=== PATIENT | female | born 1990 | race African-American/Black ===

== ENCOUNTER 2017-04-07 18:19 | Emergency (ER) | payer OTHER ==
[~2017-04-07] VITALS: Ht 162.6 cm; Wt 111.1 kg
[~2017-04-07 18:19] MED LIST: CIPR250T30 PO; PROAIR HFA8.5 GM IH
--- NOTE | 2017-04-07 19:35 | PHYS DOC ---
Past Medical History Past Medical History: Hypertension Additional Past Medical Histor: Gout, Pinched nerve in back. Past Surgical History: No Surgical History Alcohol Use: Occasionally Drug Use: Marijuana Adult General Chief Complaint Chief Complaint: LOWER EXTREMITY SWELLING HPI HPI Patient is a 26 year old female who presents with left lower leg pain since waking up from a nap at 2:30 this afternoon denies trauma but complains of pain with bearing weight to the anterior tibial area and thinks her leg slightly swollen. She was able to walk from her car to the emergency room waiting room. No prior history of any DVTs in the left leg; denies any chest pain or shortness of breath. Pain is dull left lower leg no radiation of the pain no back pain. Review of Systems Review of Systems Constitutional: Denies fever or chills [] Eyes: Denies change in visual acuity, redness, or eye pain [] HENT: Denies nasal congestion or sore throat [] Respiratory: Denies cough or shortness of breath [] Cardiovascular: No additional information not addressed in HPI [] GI: Denies abdominal pain, nausea, vomiting, bloody stools or diarrhea [] : Denies dysuria or hematuria [] Musculoskeletal: Denies back pain or joint pain [] Integument: Denies rash or skin lesions [] Neurologic: Denies headache, focal weakness or sensory changes [] Endocrine: Denies polyuria or polydipsia [] Allergies Allergies Allergies Coded Allergies Type Severity Reaction Last Updated Verified ibuprofen Allergy Intermediate 07/06/14 Yes iodine Allergy Intermediate 07/06/14 Yes blueberry Allergy Unknown 07/06/14 Yes raspberry Allergy Unknown 07/06/14 Yes Physical Exam Physical Exam Constitutional: Well developed, well nourished, no acute distress, non-toxic appearance. [] HENT: Normocephalic, atraumatic, bilateral external ears normal, oropharynx moist, no oral exudates, nose normal. [] Eyes: PERRLA, EOMI, conjunctiva normal, no discharge. [] Neck: Normal range of motion, no tenderness, supple, no stridor. [] Cardiovascular:Heart rate regular rhythm, no murmur [] Lungs & Thorax: Bilateral breath sounds clear to auscultation [] Abdomen: Bowel sounds normal, soft, no tenderness, no masses, no pulsatile masses. [] Skin: Warm, dry, no erythema, no rash. [] Back: No tenderness, no CVA tenderness. [] Extremities: No tenderness, no cyanosis, no clubbing, ROM intact, no edema. [] Neurologic: Alert and oriented X 3, normal motor function, normal sensory function, no focal deficits noted. [] Psychologic: Affect normal, judgement normal, mood normal. [] Current Patient Data Vital Signs Vital Signs Date Time Temp Pulse Resp B/P (MAP) Pulse Ox O2 Delivery O2 Flow Rate FiO2 04/07/17 19:00 97.9 116 22 191/106 (134) 97 Room Air 97.9 Lab Values Laboratory Tests Test 04/07/17 18:01 POC Urine HCG, Qualitative Hcg negative (Negative) EKG EKG [] Radiology/Procedures Radiology/Procedures Venous ultrasound left lower leg: No DVT per radiology report X-ray left tib-fib: [] Negative for fracture or lytic lesion my interpretation Course & Med Decision Making Course & Med Decision Making Pertinent Labs and Imaging studies reviewed. (See chart for details) Patient had no obvious swelling to the leg no foot drop neurologically and vascularly intact with negative imaging studies we will dismiss and have her follow up. [] Dragon Disclaimer Dragon Disclaimer This electronic medical record was generated, in whole or in part, using a voice recognition dictation system. Departure Departure Impression: Primary Impression: Pain in left lower leg Disposition: HOME, SELF-CARE Condition: STABLE Referrals: NO PCP (PCP) Scripts Tramadol Hcl (TRAMADOL HCL) 50 Mg Tablet 1 TAB PO TID Y for PAIN, #12 TAB Prov: JENNIFER RAMIREZ MD 04/07/17 JENNIFER RAMIREZ MD April 07, 2017 19:35
--- NOTE | 2017-04-07 20:18 | RAD ---
Left lower extremity venous doppler ultrasound History: SEVERE SUDDEN ONSET PAIN LT KNEE TO LT BIG TOE X 5 HRS Comparison: None Findings: Multiple grayscale, color, and duplex spectral analysis sonographic images were acquired of the left lower extremity veins to evaluate for the presence of DVT. There is normal phasicity. Normal compression, color-flow, and augmentation is demonstrated from the left common femoral to the popliteal veins. There is normal color flow of the proximal greater saphenous and profunda femoris veins. There is normal color flow of segments of the calf veins. Impression: 1. There is no evidence of deep venous thrombosis from the left common femoral to popliteal veins. Electronically signed by: Ralph Arias MD (04/07/2017 8:15 PM)
[2017-04-07] MEDS ORDERED: TRAM50TA PO (21:04)
[2017-04-07 21:10] VITALS: BP 159/84
--- NOTE | 2017-04-08 07:49 | RAD ---
Indication pain. No history of injury. AP and lateral views of the left tibia and fibula were obtained. No bony abnormality is seen
== END 2017-04-07 21:24 | disposition home or self-care (01) ==
LOC: ER 18:19
DX: M79.662 Pain in left lower leg (principal); I10 Essential (primary) hypertension; M10.9 Gout, unspecified; F12.10 Cannabis abuse, uncomplicated; Z88.6 Allergy status to analgesic agent; Z91.041 Radiographic dye allergy status; Z91.018 Allergy to other foods
CPT/HCPCS: 73590; 81025; 84703; 93971; 99284-25

== ENCOUNTER 2017-05-31 13:35 | Emergency (ER) | payer OTHER ==
[~2017-05-31] VITALS: Ht 157.5 cm; Wt 111.1 kg
[~2017-05-31 13:35] MED LIST changes: +TRAM50TA PO
[2017-05-31 13:45] VITALS: BP 144/85
[2017-05-31] MEDS ORDERED: IPRATRPIUM/ALBUTEROL 0.5/2.5MG 3 ML NEBU. NEB ONE (14:30)
[2017-05-31] MEDS ORDERED: predniSONE 20 MG TABLET PO ONE (14:30)
--- NOTE | 2017-05-31 14:35 | RAD ---
Indication productive cough. Frontal and lateral views of the chest were obtained. Comparison is made to a previous examination 07/06/2014. The heart and pulmonary vessels appear normal. The lungs are clear. There is no pleural fluid or pneumothorax. There has not been a significant change when compared to the previous exam. IMPRESSION: No acute or focal process. No significant change
[2017-05-31] MEDS ORDERED: AMOX1TAB61 PO (14:52)
[2017-05-31] MEDS ORDERED: PRED20TA PO (14:52)
--- NOTE | 2017-05-31 14:53 | PHYS DOC ---
Past Medical History Past Medical History: Asthma, Hypertension Additional Past Medical Histor: Gout, Pinched nerve in back. Past Surgical History: No Surgical History Alcohol Use: Occasionally Drug Use: Marijuana Adult General Chief Complaint Chief Complaint: ASTHMA HPI HPI Patient is a 26 year old female presents emergency department stating that she' s had a productive cough for the last few days today it's been more clear. She states the cough is been a green colored sputum. She states that she has increased headache and discomfort along the frontal part of her head. Patient also states that she is unable to use her albuterol inhaler at home as it winn too much in her throat. Patient states she has increased shortness of breath although denies any change in her normal shortness of air. Patient denies any travel. Review of Systems Review of Systems Constitutional: Denies fever or chills [] Eyes: Denies change in visual acuity, redness, or eye pain [] HENT: Denies nasal congestion or sore throat [] Respiratory: Cough with shortness of air Cardiovascular: No additional information not addressed in HPI [] GI: Denies abdominal pain, nausea, vomiting, bloody stools or diarrhea [] : Denies dysuria or hematuria [] Musculoskeletal: Denies back pain or joint pain [] Integument: Denies rash or skin lesions [] Neurologic: Denies headache, focal weakness or sensory changes [] Endocrine: Denies polyuria or polydipsia [] Current Medications Current Medications Current Medications Medications (Trade) Dose Ordered Sig/Roman Start Time Stop Time Status Last Admin Dose Admin Albuterol/ Ipratropium (Duoneb) 3 ml 1X ONCE 05/31/17 14:30 05/31/17 14:32 DC 05/31/17 14:44 3 ML Prednisone (Prednisone) 40 mg 1X ONCE 05/31/17 14:30 05/31/17 14:32 DC Allergies Allergies Allergies Coded Allergies Type Severity Reaction Last Updated Verified ibuprofen Allergy Intermediate 07/06/14 Yes iodine Allergy Intermediate 07/06/14 Yes blueberry Allergy Unknown 07/06/14 Yes raspberry Allergy Unknown 07/06/14 Yes Physical Exam Physical Exam Constitutional: Well developed, well nourished, no acute distress, non-toxic appearance. [] HENT: Normocephalic, atraumatic, bilateral external ears normal, oropharynx moist, no oral exudates, nose normal. Bilateral tympanic membranes appear to be normal. Throat with postnasal drip noted. Patient with bilateral nares appear to be congested. Patient with frontal sinus tenderness no maxillary sinus tenderness noted. Eyes: PERRLA, EOMI, conjunctiva normal, no discharge. [] Neck: Normal range of motion, no tenderness, supple, no stridor. [] Cardiovascular:Heart rate regular rhythm, no murmur [] Lungs & Thorax: Bilateral breath sounds clear to auscultation [] Skin: Warm, dry, no erythema, no rash. [] Back: No tenderness Extremities: No tenderness, no cyanosis, no clubbing, ROM intact, no edema. [] Neurologic: Alert and oriented X 3, normal motor function, normal sensory function, no focal deficits noted. [] Psychologic: Affect normal, judgement normal, mood normal. [] Current Patient Data Vital Signs Vital Signs Date Time Temp Pulse Resp B/P (MAP) Pulse Ox O2 Delivery O2 Flow Rate FiO2 05/31/17 14:44 Room Air 05/31/17 13:45 98.4 100 20 99 98.4 Lab Values Laboratory Tests Test 05/31/17 13:21 POC Urine HCG, Qualitative Hcg negative (Negative) EKG EKG [] Radiology/Procedures Radiology/Procedures [] [address] [place] [address] IMAGING REPORT Signed PATIENT: JANENE GOLDMAN ACCOUNT: [id number] : 1990 LOCATION: ER AGE: 26 SEX: F EXAM STATUS: REG ER ORD. PHYSICIAN: DEMOND SARAH APRN REASON: productive yellow cough PROCEDURE: CHEST PA & LATERAL Indication productive cough. Frontal and lateral views of the chest were obtained. Comparison is made to a previous examination 07/06/2014. The heart and pulmonary vessels appear normal. The lungs are clear. There is no pleural fluid or pneumothorax. There has not been a significant change when compared to the previous exam. IMPRESSION: No acute or focal process. No significant change DICTATED and SIGNED BY: JANA HAMEED MD DATE: 05/31/17 4420 CC: DEMOND SARAH APRN; NO PCP; NON,STAFF ~ Course & Med Decision Making Course & Med Decision Making Pertinent Labs and Imaging studies reviewed. (See chart for details) Chest x-ray was negative for any abnormalities per radiology. Patient will be provided with prednisone. She'll also be placed on Augmentin with recommendations to continue with her albuterol inhaler at home. Patient was also recommended to use Mucinex DM to help with her cough and congestion. Patient was provided with signs and symptoms to return back to the emergency department. Patient agrees with discharge instructions, treatment regimens and follow-up recommendations. [] Dragon Disclaimer Dragon Disclaimer This electronic medical record was generated, in whole or in part, using a voice recognition dictation system. Departure Departure Impression: Primary Impression: Sinusitis Additional Impression: Upper respiratory infection Disposition: HOME, SELF-CARE Condition: STABLE Referrals: NO PCP (PCP) Patient Instructions: Sinusitis, [id number], Upper Respiratory Infection, Adult, [id number] Additional Instructions: Your chest x-ray was negative for any pneumonias or any abnormalities. Activity as tolerated. Medications as prescribed. Mucinex DM will help with her cough and congestion. Take instructed by logistics assistant [id number]. Continue using her albuterol inhaler at home for any wheezing shortness of air difficulty breathing. Follow-up through primary care physician in the next 3-5 days. Return back to emergency department for signs and symptoms of become worse. Scripts Prednisone (PREDNISONE) 20 Mg Tablet 40 MG PO DAILY, #14 TAB Prov: DEMOND SARAH APRN 05/31/17 Amoxicillin/Potassium Clav (AUGMENTIN 875-125 TABLET) 1 Each Tablet 1 TAB PO BID, #20 TAB Prov: DEMOND SARAH APRN 05/31/17 Problem Qualifiers DEMOND SARAH APRN May 31, 2017 14:53
== END 2017-05-31 15:07 | disposition home or self-care (01) ==
LOC: ER 13:35
DX: J32.1 Chronic frontal sinusitis (principal); J06.9 Acute upper respiratory infection, unspecified; I10 Essential (primary) hypertension; J45.909 Unspecified asthma, uncomplicated; M10.9 Gout, unspecified; F12.10 Cannabis abuse, uncomplicated; Z88.6 Allergy status to analgesic agent; Z88.8 Allergy status to other drugs, medicaments and biological substances
CPT/HCPCS: 71020; 81025; 94250; 94640; 99284; J7512; J7620

== ENCOUNTER 2017-09-26 12:06 | Emergency (ER) | payer OTHER ==
[~2017-09-26] VITALS: Ht 162.6 cm; Wt 108.9 kg
[~2017-09-26 12:06] MED LIST changes: +AMOX1TAB61 PO; +PRED20TA PO
[2017-09-26 12:18] VITALS: BP 122/82
[2017-09-26] MEDS ORDERED: methylPREDNISolone SOD SUCC PF 125 MG/2 ML VIAL. IM ONE (12:30)
[2017-09-26] MEDS ORDERED: IPRATRPIUM/ALBUTEROL 0.5/2.5MG 3 ML NEBU. NEB ONE (12:30)
[2017-09-26] MEDS ORDERED: PRED20TA PO (12:47)
[2017-09-26] MEDS ORDERED: PROAIR HFA8.5 GM INH (12:47)
[2017-09-26] MEDS ORDERED: AZIT250T6 PO (12:47)
--- NOTE | 2017-09-26 12:48 | PHYS DOC ---
Past Medical History Past Medical History: Asthma, Hypertension Additional Past Medical Histor: Gout, Pinched nerve in back. Past Surgical History: No Surgical History Alcohol Use: None Drug Use: Marijuana Adult General Chief Complaint Chief Complaint: COUGH HPI HPI Patient is a 27 year old female presents the ED complaining of cough 3 days. Patient has a history of asthma. States similar symptoms in the past with previous asthma exacerbations. Associated symptoms include sore throat, rhinorrhea. Denies chest pain, shortness of breath, dizziness, weakness, nausea/ vomiting, abdominal pain, headache. Review of Systems Review of Systems Constitutional: Denies fever or chills [] Eyes: Denies change in visual acuity, redness, or eye pain [] HENT: Complains of rhinorrhea and sore throat.[] Respiratory: Complains of cough. Denies shortness of breath [] Cardiovascular: No additional information not addressed in HPI [] GI: Denies abdominal pain, nausea, vomiting, bloody stools or diarrhea [] : Denies dysuria or hematuria [] Musculoskeletal: Denies back pain or joint pain [] Integument: Denies rash or skin lesions [] Neurologic: Denies headache, focal weakness or sensory changes [] Endocrine: Denies polyuria or polydipsia [] All other systems were reviewed and found to be within normal limits, except as documented in this note. Current Medications Current Medications Current Medications Medications (Trade) Dose Ordered Sig/Roman Start Time Stop Time Status Last Admin Dose Admin Albuterol/ Ipratropium (Duoneb) 3 ml 1X ONCE 09/26/17 12:30 09/26/17 12:31 DC 09/26/17 12:36 3 ML Methylprednisolone Sodium Succinate (SOLU-Medrol 125MG VIAL) 125 mg 1X ONCE 09/26/17 12:30 09/26/17 12:31 DC 09/26/17 12:37 125 MG Allergies Allergies Allergies Coded Allergies Type Severity Reaction Last Updated Verified ibuprofen Allergy Intermediate 07/06/14 Yes iodine Allergy Intermediate 07/06/14 Yes blueberry Allergy Unknown 07/06/14 Yes raspberry Allergy Unknown 07/06/14 Yes Physical Exam Physical Exam Constitutional: Well developed, well nourished, no acute distress, non-toxic appearance. [] HENT: Normocephalic, atraumatic, bilateral external ears normal, oropharynx moist, no oral exudates, nose normal. [] Eyes: PERRLA, EOMI, conjunctiva normal, no discharge. [] Neck: Normal range of motion, no tenderness, supple, no stridor. [] Cardiovascular:Heart rate regular rhythm, no murmur [] Lungs & Thorax: Bilateral breath sounds. MILD WHEEZING. [] Abdomen: Bowel sounds normal, soft, no tenderness, no masses, no pulsatile masses. [] Skin: Warm, dry, no erythema, no rash. [] Back: No tenderness, no CVA tenderness. [] Extremities: No tenderness, no cyanosis, no clubbing, ROM intact, no edema. [] Neurologic: Alert and oriented X 3, normal motor function, normal sensory function, no focal deficits noted. [] Psychologic: Affect normal, judgement normal, mood normal. [] Current Patient Data Vital Signs Vital Signs Date Time Temp Pulse Resp B/P (MAP) Pulse Ox O2 Delivery O2 Flow Rate FiO2 09/26/17 12:36 Room Air 09/26/17 12:18 98.0 112 20 98 98.0 EKG EKG [] Radiology/Procedures Radiology/Procedures PROCEDURE: CHEST PA & LATERAL Indication: Pneumonia, short of air, cough, wheezing, fever. Symptoms for 4 days. Technique: Two-view chest radiograph was obtained. No comparison is available. Findings: The lungs are clear. The cardiopulmonary silhouette is within normal limits. There is no pleural effusion. The bony structures are intact. Impression: No acute thoracic findings. [] Course & Med Decision Making Course & Med Decision Making Pertinent Labs and Imaging studies reviewed. (See chart for details) []Patient improved after breathing treatment. States she is feeling much better. Discussed imaging findings with patient. Vitals stable, no acute distress. Will discharge with prednisone, azithromycin and Pro Air inhaler. Discussed at home symptomatic treatment. Discussed follow-up and reasons to return to the ED. Patient understands and agrees with plan. Dragon Disclaimer Dragon Disclaimer This electronic medical record was generated, in whole or in part, using a voice recognition dictation system. Departure Departure Impression: Primary Impression: Acute bronchitis Disposition: HOME, SELF-CARE Condition: IMPROVED Referrals: NO PCP (PCP) SARITHA RIVAS MD Patient Instructions: Acute Bronchitis Scripts Albuterol Sulfate (PROAIR HFA INHALER) 8.5 Gm Hfa.aer.ad 1 PUFF INH PRN Q6HRS Y for SHORTNESS OF BREATH, #1 INHALER 0 Refills Prov: DUNCAN FROST 09/26/17 Azithromycin (AZITHROMYCIN TABLET) 250 Mg Tablet 1 PKG PO UD, #6 TAB Prov: DUNCAN FROST 09/26/17 Prednisone (PREDNISONE) 20 Mg Tablet 2 TAB PO DAILY, #10 TAB Prov: DUNCAN FROST 09/26/17 DUNCAN FROST Sep 26, 2017 12:48
--- NOTE | 2017-09-26 12:59 | RAD ---
Indication: Pneumonia, short of air, cough, wheezing, fever. Symptoms for 4 days. Technique: Two-view chest radiograph was obtained. No comparison is available. Findings: The lungs are clear. The cardiopulmonary silhouette is within normal limits. There is no pleural effusion. The bony structures are intact. Impression: No acute thoracic findings.
== END 2017-09-26 13:52 | disposition home or self-care (01) ==
LOC: ER 12:06
DX: J20.9 Acute bronchitis, unspecified (principal); I10 Essential (primary) hypertension; J45.909 Unspecified asthma, uncomplicated; M10.9 Gout, unspecified
CPT/HCPCS: 71020; 94250; 94640; 96372; 99284; J2930; J7620

== ENCOUNTER 2017-12-23 17:00 | Emergency (ER) | payer OTHER | END 2017-12-23 18:25 | disposition home or self-care (01) | LOC: ER 17:00 | DX: M79.644 Pain in right finger(s) (principal); J45.909 Unspecified asthma, uncomplicated; I10 Essential (primary) hypertension; M10.9 Gout, unspecified; F12.10 Cannabis abuse, uncomplicated; Z88.6 Allergy status to analgesic agent; Z91.041 Radiographic dye allergy status; Z91.018 Allergy to other foods | CPT/HCPCS: 73140; 99284 ==

== ENCOUNTER 2018-08-07 16:16 | Emergency (ER) | payer OTHER ==
[2017-12-23 17:19] VITALS: BP 146/96
[~2018-08-07] VITALS: Ht 162.6 cm; Wt 100.7 kg
[~2018-08-07 16:16] MED LIST changes: +AZIT250T6 PO; +PROAIR HFA8.5 GM INH
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
[2018-08-07] MEDS ORDERED: CYCL10TA2 PO (17:27)
== END 2018-08-07 17:51 | disposition home or self-care (01) ==
LOC: ER 16:16
DX: G89.11 Acute pain due to trauma (principal); M25.562 Pain in left knee; M79.662 Pain in left lower leg; J45.909 Unspecified asthma, uncomplicated; I10 Essential (primary) hypertension; Z91.018 Allergy to other foods; Z88.6 Allergy status to analgesic agent; Z91.041 Radiographic dye allergy status; V49.59XA Passenger injured in collision with other motor vehicles in traffic accident, initial encounter; Y93.89 Activity, other specified; Y92.89 Other specified places as the place of occurrence of the external cause; Y99.8 Other external cause status
CPT/HCPCS: 73564; 73590; 99284